=== PATIENT | female | born 1995 | race Caucasian/White ===

== ENCOUNTER → 2017-12-27 | Outpatient (CLI) | payer BC ==
--- NOTE | 2017-12-27 17:48 | RADIOLOGY IMAGING REPORT ---
FACILITY: [facility] - [place] PATIENT NAME: Helen Lopez : 1995 MR: [id number] V: [id number] EXAM DATE: ORDERING PHYSICIAN: ERAN WILKS TECHNOLOGIST: Location: [facility] [place] Patient: Helen Lopez : 1995 Visit/Account:[id number] Date of Sevice: 12/27/2017 Pelvic ultrasound: HISTORY: Right ovarian enlargement/ovarian cyst. LMP 12/20/2017. COMPARISON: None. FINDINGS: Transabdominal scanning was performed. Patient refused transvaginal scanning. Uterus measures 9 x 4.9 x 3.5 cm. Myometrium is homogeneous without focal mass. Endometrium is thin a nd homogeneous and measures 3 to 4 mm in thickness. Cervix unremarkable. No free fluid is present in the cul-de-sac. Pelvic vessels are normal. Right ovary measures 2.3 x 1.8 x 3.2 cm. Small follicles are present. Blood flow is documented to the right ovary. Left ovary measures 2.8 x 1.3 x 2.8 cm. Small follicle is present measuring 1.4 cm in d imension. There is also a collapsing follicle measuring 1.9 cm in greatest dimension. IMPRESSION: 1. Normal sonographic appearance of the ovaries. There is no dominant mass or cyst. Follicles are pre sent bilaterally. 2. Normal sonographic appearance of the endometrium and myometrium. Report Dictated By: Leonor Loredo MD at 12/27/2017 5:32 PM Report E-Signed By: Leonor Loredo MD at 12/27/2017 5:46 PM WSN:[id number]
== END ==
LOC: US 15:51
PROVIDERS: ATTEND Family Medicine
DX: N83.201 Unspecified ovarian cyst, right side (principal)
CPT/HCPCS: 76857

== ENCOUNTER 2018-04-21 15:44 | Emergency (ER) | payer OTHER, BC ==
[2018-04-21] MEDS ORDERED: ETHI1TAB3 PO (15:49)
[2018-04-21 15:50] VITALS: BP 124/80
--- NOTE | 2018-04-21 15:52 | ER Report ---
History and Physical Time Seen By MD: 15:52 HPI/ROS CHIEF COMPLAINT: Right knee pain HISTORY OF PRESENT ILLNESS: 22-year-old female patient presents to emergency room with complaint of right knee pain. Patient states that she was at work today and felt her knee pop. She states that since incident having significant amounts pain. She states that this happened several hours ago. She states she's taken some ibuprofen for this with no improvement. She denies any numbness or tingling to her toes. She states she's been able to ambulate today. She states that pain has been fairly significant. She states she had previous injury to this knee several years ago. She states that there is been no problems since then. REVIEW OF SYSTEMS: Respiratory: No cough, no dyspnea. Cardiovascular: No chest pain, no palpitations. Gastrointestinal: No vomiting, no abdominal pain. Musculoskeletal: As noted above Allergies: Coded Allergies: No Known Drug Allergies (Unverified , 04/21/18) Home Meds Active Scripts Ketorolac Tromethamine (KETOROLAC TROMETHAMINE) 10 Mg Tab, 10 MG PO Q6H, #20 TAB Prov:AYANA NEWTON [employer] 04/21/18 Reported Medications Ethinyl Estradiol/Drospirenone (NISHANT 28 TABLET) 1 Each Tablet, 1 EACH PO QDAY, TAB 04/21/18 Past Medical/Surgical History Patient has a past medical history of ovarian cyst. Patient denies any pertinent surgical history. Reviewed Nurses Notes: Yes Hx Substance Use Disorder: No Constitutional Vital Sign - Last 24 Hours 04/21/18 15:50 Temp 97.9 Pulse 79 Resp 16 B/P (MAP) 124/80 Pulse Ox 96 O2 Delivery Room Air Physical Exam General Appearance: The patient is alert, has no immediate need for airway protection and no current signs of toxicity. ENT: Tympanic membranes are pearly-anthony, auditory canals are patent, mucous membranes are moist. Respiratory: Chest is non tender, lungs are clear to auscultation. Cardiac: regular rate and rhythm Gastrointestinal: Abdomen is soft and non tender, no masses, bowel sounds normal. Musculoskeletal: Neck: Neck is supple and non tender. Extremities have full range of motion and are non tender. Skin: No rashes or lesions. DIFFERENTIAL DIAGNOSIS: After history and physical exam differential diagnosis was considered for knee sprain, knee contusion, knee fracture. Medical Decision Making EKG/Imaging Imaging INDICATION: knee pain. DATE: 04/21/2018 4:40 PM. TECHNIQUE: KNEE 4 VIEW RIGHT COMPARISON: None FINDINGS: Normal alignment. No fracture. No effusion. No degenerative findings. No erosions. IMPRESSION: Radiographically normal. Report Dictated By: Tracee Newby MD at 04/21/2018 4:40 PM Report E-Signed By: Tracee Newby MD at 04/21/2018 4:41 PM ED Course/Re-evaluation ED Course Patient was admitted to the exam room, history and physical were obtained. Differential diagnoses were considered. On examination patient has diffuse tenderness to the right knee. X-ray of the right knee was done which was negative. Patient was placed in a knee immobilizer. Patient states she does feel better. An prescription was sent in for Toradol. Patient states that as directed. She is to ice her knee to 3 times a day. She is to limit activity by pain. Patient asked if she is able to go back to work on Tuesday. I informed her that is okay as long as she is wearing a knee immobilizer. She verbalized understanding and agreement with plan. Decision to Disposition Date: Apr 21, 2018 Decision to Disposition Time: 16:37 Depart Departure Latest Vital Signs Vital Signs Date Time Temp Pulse Resp B/P (MAP) Pulse Ox O2 Delivery O2 Flow Rate FiO2 04/21/18 15:50 97.9 79 16 124/80 96 Room Air Impression: Primary Impression: Right knee sprain Condition: Improved Disposition: HOME OR SELF-CARE Referrals: ERAN WILKS DO (PCP) YUE ROPER MD New Scripts Ketorolac Tromethamine (KETOROLAC TROMETHAMINE) 10 Mg Tab 10 MG PO Q6H, #20 TAB Prov: AYANA NEWTON [employer]IST 04/21/18 Patient Instructions: Knee Sprain (ED) Additional Instructions: Limit activity by pain. Ice the knee 2-3 times a day for 10-15 minutes. Get plenty of rest. Wear the knee immobilizer when you are up moving around. You may take it off to sleep, shower and when you are not active. Follow up with [facility] in the next week. Return to the ER if condition worsens. Problem Qualifiers Primary Impression: Right knee sprain Encounter type: initial encounter Involved ligament of knee: unspecified ligament Qualified Codes: S83.91XA - Sprain of unspecified site of right knee, initial encounter AYANA NEWTON Apr 21, 2018 15:52
[2018-04-21] MEDS ORDERED: KET10 PO (16:36)
--- NOTE | 2018-04-21 16:46 | RADIOLOGY IMAGING REPORT ---
FACILITY: [facility] - [place] PATIENT NAME: Helen Lopez : 1995 MR: [id number] V: [id number] EXAM DATE: ORDERING PHYSICIAN: AYANA NEWTON TECHNOLOGIST: Location: [facility] Patient: Helen Lopez : 1995 Visit/Account:[id number] Date of Sevice: 04/21/2018 INDICATION: knee pain. DATE: 04/21/2018 4:40 PM. TECHNIQUE: KNEE 4 VIEW RIGHT COMPARISON: None FINDINGS: Normal alignment. No fracture. No effusion. No degenerative findings. No erosions. IMPRESSION: Radiographically normal. Report Dictated By: Tracee Newby MD at 04/21/2018 4:40 PM Report E-Signed By: Tracee Newby MD at 04/21/2018 4:41 PM WSN:[id number]
== END 2018-04-21 17:04 | disposition home or self-care (01) ==
LOC: ER 15:49
DX: S83.91XA Sprain of unspecified site of right knee, initial encounter (principal)
CPT/HCPCS: 73564; 99283; L1830